=== PATIENT | female | born 1935 | race Caucasian/White ===

== ENCOUNTER 2016-09-22 11:43 | Emergency (ER) | payer OTHER, BC ==
[2016-09-22 11:53] VITALS: BMI 31.1
--- NOTE | 2016-09-22 12:05 | PDOC ---
History of Present Illness - General Chief Complaint: Syncope/Near Syncope Stated Complaint: FAINTED Time Seen by Provider: 09/22/16 12:04 Past History - Past Medical History Allergies/Adverse Reactions: Allergies Allergy/AdvReac Type Severity Reaction Status Date / Time levofloxacin [From Levaquin] Allergy Severe Difficulty Verified 09/22/16 11:50 Breathing Sulfa (Sulfonamide Allergy Intermediate Rash Verified 09/22/16 11:50 Antibiotics) [Sulfa(Sulfonamide Antibiotics)] environmental Allergy Mild Cough Uncoded 09/22/16 11:50 Home Medications: Ambulatory Orders Duloxetine [Cymbalta -] 30 mg PO DAILY 12/07/11 Esomeprazole Mag Trihydrate [Nexium] 40 mg PO ASDIR 12/07/11 Levothyroxine [Synthroid -] 0.125 mcg PO DAILY 12/07/11 Metoprolol Succinate [Toprol XL -] 25 mg PO DAILY 12/07/11 Rosuvastatin Calcium [Crestor] 20 mg PO DAILY 12/07/11 Fluticasone Propionate [Flovent Hfa] 110 mcg IH PRN 12/18/11 Vit D3 & K/Berberine HCl/Hops 1 tab PO DAILY 12/18/11 Aspirin [ASA -] 162 mg PO DAILY #60 tab.chew 09/25/13 Anemia: No Asthma: Yes (mild during allergy seasons) Cancer: Yes (newly dx rt breast) Cardiac Disorders: No CVA: No COPD: No CHF: No Dementia: No Diabetes: No GI Disorders: No Disorders: No HTN: Yes Hypercholesterolemia: Yes Liver Disease: No Seizures: No Thyroid Disease: Yes (HYPO.) Other medical history: HIATAL HERNIA. - Surgical History Abdominal Surgery: No Appendectomy: No Cardiac Surgery: No Cholecystectomy: No Lung Surgery: No Neurologic Surgery: No Orthopedic Surgery: Yes - Psycho/Social/Smoking Cessation Hx Anxiety: No Suicidal Ideation: No Smoking History: Never smoked Have you smoked in the past 12 months: No Hx Alcohol Use: No Drug/Substance Use Hx: No Substance Use Type: None Hx Substance Use Treatment: No *Physical Exam - Vital Signs Last Vital Signs Temp Pulse Resp BP Pulse Ox 98.4 F 84 18 83/58 98 09/22/16 11:46 09/22/16 11:46 09/22/16 11:46 09/22/16 11:46 09/22/16 11:46
[2016-09-22] MEDS ORDERED: SODIUM CHLORIDE 0.9% 1000 ML INFUS.BAG IV ONE ×2 (13:19→15:49)
[2016-09-22 13:35] LABS: MCH 29.1 pg (25.7-33.7); MCHC 34.3 g/dl (32.0-36.0); MEAN CELL VOLUME 84.7 fl (80-96); MEAN PLT VOLUME 7.4 fl (7.5-11.1); PLATELET COUNT 131 K/MM3 (134-434); WHITE BLOOD COUNT 4.6 K/mm3 (4.0-10.0)
[2016-09-22 14:17] LABS: PLATELET ESTIMATE SLT DECREASED (NORMAL)
[2016-09-22 14:19] LABS: ANION GAP 6 (8-16); CALCIUM 8.5 mg/dL (8.5-10.1); CO2 28 mmol/L (21-32); GLUCOSE,RANDOM 112 mg/dL (74-106)
[2016-09-22 14:22] LABS: CREATININE 1.3 mg/dL (0.55-1.02)
[2016-09-22 14:24] LABS: TROPONIN I < 0.02 ng/ml (0.00-0.05)
--- NOTE | 2016-09-22 14:35 | PDOC ---
History of Present Illness - General Chief Complaint: Syncope/Near Syncope Stated Complaint: FAINTED Time Seen by Provider: 09/22/16 12:04 History Source: Patient Exam Limitations: No Limitations - History of Present Illness Initial Comments: 81 year old female with PMH of HTN and HLD presenting with presyncopal sensation this AM. She was gardening earlier and got up rather quickly then felt lightheaded and nauseous but denies LOC or actual syncope. She does admit to vomiting after sitting down at the end of her stairs. She has had some chronic sinusitis over the past month. She has recently been depressed over the loss of her cat and admits to decreased PO intake. She had an episode of syncope 3 years ago which was attributed to dehydration. Denies chest pain, palpitations, paresthesias, fevers, localized weakness, dysarthria, recent sick contacts, or other symptoms. 09/22/16 16:10 Past History - Past Medical History Allergies/Adverse Reactions: Allergies Allergy/AdvReac Type Severity Reaction Status Date / Time levofloxacin [From Levaquin] Allergy Severe Difficulty Verified 09/22/16 11:50 Breathing Sulfa (Sulfonamide Allergy Intermediate Rash Verified 09/22/16 11:50 Antibiotics) [Sulfa(Sulfonamide Antibiotics)] environmental Allergy Mild Cough Uncoded 09/22/16 11:50 Home Medications: Ambulatory Orders Duloxetine [Cymbalta -] 30 mg PO DAILY 12/07/11 Metoprolol Succinate [Toprol XL -] 25 mg PO DAILY 12/07/11 Rosuvastatin Calcium [Crestor] 20 mg PO DAILY 12/07/11 Fluticasone Propionate [Flovent Hfa] 110 mcg IH PRN 12/18/11 Levothyroxine [Synthroid -] 25 mcg PO DAILY 09/22/16 Anemia: No Asthma: Yes (mild during allergy seasons) Cancer: Yes (newly dx rt breast) Cardiac Disorders: No CVA: No COPD: No CHF: No Dementia: No Diabetes: No GI Disorders: No Disorders: No HTN: Yes Hypercholesterolemia: Yes Liver Disease: No Seizures: No Thyroid Disease: Yes (HYPO.) Other medical history: HIATAL HERNIA. - Surgical History Abdominal Surgery: No Appendectomy: No Cardiac Surgery: No Cholecystectomy: No Lung Surgery: No Neurologic Surgery: No Orthopedic Surgery: Yes - Psycho/Social/Smoking Cessation Hx Anxiety: No Suicidal Ideation: No Smoking History: Never smoked Have you smoked in the past 12 months: No Hx Alcohol Use: No Drug/Substance Use Hx: No Substance Use Type: None Hx Substance Use Treatment: No Review of Systems - Review of Systems Constitutional: No: Chills, Diaphoresis, Fever HEENTM: Yes: Nose Congestion, Other (Frontal snus congestion). No: Blurred Vision, Double Vision Respiratory: No: Cough, Orthopnea, Shortness of Breath, SOB with Exertion Cardiac (ROS): Yes: Lightheadedness. No: Chest Pain, Edema, Irregular Heart Rate, Palpitations, Syncope, Chest Tightness ABD/GI: Yes: Nausea, Vomiting. No: Constipated, Diarrhea, Poor Appetite : Yes: Frequency, Urgency. No: Dysuria, Flank Pain Musculoskeletal: No: Joint Pain, Joint Swelling, Muscle Pain Integumentary: No: Bruising, Dryness, Erythema Neurological: Yes: Headache. No: Numbness, Paresthesia Psychiatric: Yes: Depression (Depressed about cat passing away.), Frequent Crying Endocrine: Yes: Excessive Sweating, Flushing, Increased Urine *Physical Exam - Vital Signs Last Vital Signs Temp Pulse Resp BP Pulse Ox 98.4 F 78 18 121/63 97 09/22/16 11:46 09/22/16 13:38 09/22/16 12:38 09/22/16 13:38 09/22/16 12:10 - Physical Exam General Appearance: Yes: Appropriately Dressed. No: Apparent Distress HEENT: positive: EOMI, KAISER, Normal Voice Neck: positive: Supple. negative: Tender, Rigid Respiratory/Chest: positive: Lungs Clear, Normal Breath Sounds. negative: Chest Tender, Respiratory Distress, Accessory Muscle Use, Rhonchi, Wheezing Cardiovascular: positive: Regular Rhythm, Regular Rate, Murmur, Systolic Murmur Gastrointestinal/Abdominal: positive: Normal Bowel Sounds, Flat, Soft. negative : Tender, Organomegaly Musculoskeletal: positive: Normal Inspection Extremity: positive: Normal Capillary Refill, Normal Inspection, Normal Range of Motion. negative: Tender Integumentary: positive: Normal Color, Dry, Warm Neurologic: positive: Fully Oriented, Alert, Normal Mood/Affect, Motor Strength 5/5, Other (Abmbulation without diffculty) ED Treatment Course - LABORATORY CBC & Chemistry Diagram: 09/22/16 13:25 09/22/16 13:25 - ADDITIONAL ORDERS Additional order review: Laboratory Results 09/22/16 09/22/16 09/22/16 13:25 13:25 13:25 Sodium 138 Potassium 4.3 Chloride 104 Carbon Dioxide 28 Anion Gap 6 L BUN 23 H D Creatinine 1.3 H Random Glucose 112 H Lactic Acid 1.3 Calcium 8.5 Creatine Kinase Cancelled 111 Troponin I Cancelled < 0.02 09/22/16 13:25 RBC 4.85 MCV 84.7 MCHC 34.3 RDW 14.0 MPV 7.4 L Neutrophils % 76.0 Lymphocytes % 16.0 D Monocytes % 7.0 - Medications Given in the ED: ED Medications Discontinued Medications Generic Name Dose Route Start Last Admin Trade Name Freq PRN Reason Stop Dose Admin Sodium Chloride 500 ml 09/22/16 13:19 09/22/16 13:37 Normal Saline - IV 09/22/16 13:20 500 ml ONCE ONE Administration Medical Decision Making - Medical Decision Making 09/22/16 15:59 81 year old female with PMH of HTN and HLD presenting with lightheadedness nausea, and vomiting today after gardening. This was most likely orthostatic hypotension given her recently decreased PO intake secondary to depression about her cat passing away. Her CBC, BMP, and lactate were WNL and her pressures came up to 100s after 500 mL NS. Given lab results and overall clinical picture she doesn't appear acutely ill. Will give one more 500 mL bolus and send home with follow up with Dr. Avila on Saturday. 09/22/16 16:15 09/22/16 17:16 *DC/Admit/Observation/Transfer Diagnosis at time of Disposition: Orthostatic hypotension - Discharge Dispostion Disposition: HOME Condition at time of disposition: Improved Admit: No - Referrals Referrals: Sara Posey MD [Primary Care Provider] - - Patient Instructions Additional Instructions: You were seen because you were feeling lightheaded. We believe that you haven't been drinking enough water and haven't been eating enough food. We understand that your cat but please eat food and drink water. Please make sure to drink more water when it is warm outside. - Attestations Physician Attestion: 09/22/16 17:17 I, Dr. Andi Saenz, attest that this document has been prepared under my direction and personally reviewed by me in its entirety. I further attest, that it accurately reflects all work, treatment, procedures and medical decision -making performed by me.
[2016-09-22 14:45] VITALS: BP 134/78; PULSE 73; TEMP 98.2
--- NOTE | 2016-09-22 16:52 | PDOC ---
Attending Attestation - Resident Resident Name: Andi Saenz - HPI HPI: 09/22/16 16:49 Pt presents to the ED complaining of presyncope. Initially mildly hypotensive, improved with gentle hydration. - Physicial Exam PE: 09/22/16 16:51 Patient is well appearing and in no acute distress. Lungs are clear, no cardiac murmurs. - Medical Decision Making 09/22/16 16:55 Pt presents to the ED with witnessed presyncope. Initially hypotensive, improved after gentle hydration. Labs and EKG are normal and patient is asking to go home. Case discussed with patient's primary care doctor who will see the patient on Saturday. Will discharge home.
--- NOTE | 2016-09-23 13:47 | EKG ---
Test Reason : Blood Pressure : / mmHG Vent. Rate : 084 BPM Atrial Rate : 084 BPM P-R Int : 128 ms QRS Dur : 074 ms QT Int : 354 ms P-R-T Axes : 037 004 018 degrees QTc Int : 418 ms NORMAL SINUS RHYTHM NORMAL ECG WHEN COMPARED WITH ECG OF 24-SEP-2013 11:44, NO SIGNIFICANT CHANGE WAS FOUND Confirmed by DWIGHT SORTO MD ([id number]) on 09/23/2016 1:47:12 PM Referred By: Confirmed By:DWIGHT SORTO MD
== END 2016-09-22 17:44 | disposition home or self-care (01) ==
LOC: JER 11:43 → SUPCPDRO 11:43 → JER 17:44
DX: I95.1 Orthostatic hypotension (principal); I10 Essential (primary) hypertension; E78.00 Pure hypercholesterolemia, unspecified; E03.9 Hypothyroidism, unspecified; C50.919 Malignant neoplasm of unspecified site of unspecified female breast
CPT/HCPCS: 36415; 71010-TC; 80048; 82550; 83605; 84484; 85025; 93005; 93010; 99284-25

== ENCOUNTER → 2018-05-09 | Day surgery (SDC) | payer OTHER, BC ==
--- NOTE | 2018-05-12 20:57 | OP ---
DATE OF OPERATION: 05/09/2018 PREOPERATIVE DIAGNOSIS: Right breast mass, 5 o'clock, 8 cm from the nipple. POSTOPERATIVE DIAGNOSIS: Right breast mass, 5 o'clock, 8 cm from the nipple. PROCEDURE: Right ultrasound-guided core biopsy and clip placement. ANESTHESIA: Local. ATTENDING SURGEON: Lobo Petty MD ESTIMATED BLOOD LOSS: Minimal. COMPLICATIONS: None. DESCRIPTION OF PROCEDURE: Patient was made aware of the risks and benefits of the procedure and consented. She was placed in supine position. Under sterile conditions with 1% lidocaine for local anesthesia, small sherwin was made in the skin. Using a 10-gauge suction biopsy device via an inferolateral approach under ultrasound guidance, multiple cores were obtained and submitted to Pathology. Likewise, under ultrasound guidance, bow-tie clip was placed into the biopsy region. Well tolerated by patient. Steri-Strip and a sterile bandage were applied. LOBO PETTY M.D. [id number]
--- NOTE | 2018-05-13 16:33 | PATH ---
Surgical Pathology Report Patient Name: JASMEET JONES [facility]. Rec. #: [id number] /Age/Gender: 1935 (Age: 83) / F Account: [id number] Location: [facility] MED-SURG Taken: 05/09/2018 Received: 05/09/2018 Reported: 05/13/2018 Physicians: Lukas Marino M.D. Specimen(s) Received RIGHT BREAST CORE BIOPSY 5:00 N8 Clinical History Nonpalpable lesion Ultrasound findings: Highly suspicious for malignant Final Diagnosis RIGHT BREAST, 5:00, 8 CM FN, CORE BIOPSY: INVASIVE DUCTAL CARCINOMA, MODERATELY DIFFERENTIATED, WITH MICROPAPILLARY FEATURES, MEASURING 0.6 CM IN GREATEST DIMENSION IN THIS MATERIAL. Results of Estrogen Receptor (ER) and Progesterone Receptor (MO) studies performed on block "1" at [facility] are as follows: ER (clone [id number] mouse monoclonal antibody by [employer]): 100% nuclear staining with strong intensity (Positive). MO (clone16 mouse monoclonal antibody by [employer]): 100% nuclear staining with strong intensity (Positive). Positive and negative controls (internal if applicable) show appropriate results. Formalin fixation time exceeds current ASCO/CAP recommendations for ER,MO & Her2 testing (6-72 hrs). Negative results must be interpreted with caution as false negatives may occur. Cold ischemic time is within recommended guidelines. Reports for Her 2 and Ki-67 to follow as an addendum. Electronically Signed Shea Rose M.D. Addendum Reported: 05/14/2018 Addendum Diagnosis Biomarker Studies Results of Her2 (IHC) & Ki-67 studies performed on this specimen at [place], [place] ([id number]) interpreted at [facility] are as follows: Her2 IHC (EP3 from [employer], formerly known as [id number], using [employer] Polymer Refine detection kit): Negative (0) Ki-67: ~10% (low proliferative index) Shea Rose M.D. Gross Description Received in formalin labeled "right breast biopsy 5:00, 8cmfn," are 4 bennett-yellow, cylindrical portions of fibroadipose tissue ranging from 0.7-2.2 cm in length and averaging 0.2 cm in diameter. The specimens are submitted in toto in one cassette. Time to formalin fixation: Less than one minute Total formalin fixation time: Approximately 76 hours. 05/12/201805/12/2018
== END | disposition home or self-care (01) ==
LOC: FRADUS-SUR 12:26
PROVIDERS: ATTEND Surgery Surgical Oncology
PROC: 0HBT3ZX Excision of Right Breast, Percutaneous Approach, Diagnostic (ICD-10-PCS; principal; 2018-05-09)
DX: C50.311 Malignant neoplasm of lower-inner quadrant of right female breast (principal); Z17.0 Estrogen receptor positive status [ER+]; N63.14 Unspecified lump in the right breast, lower inner quadrant
CPT/HCPCS: 19083; 77065-TC; 87899; 88305-TC; 88342-TC; A4648

== ENCOUNTER 2018-06-05 08:29 | Day surgery (SDC) | payer OTHER, BC ==
--- NOTE | 2018-05-29 10:14 | HP ---
Admitting History and Physical - Primary Care Physician PCP: Lukas Marino - Admission Chief Complaint: Right breast cancer History of Present Illness: 83 year old postmenapausal female S/P right breast wide excision 12/2011 for a 5mm invasive ductal carcinoma ER/AK+ HER2 -.She took arimidex for 4 yrs but no RT. She was lost to follow up and then underwent a screening mammogram 2018 and was noted to have a new spiculated density towards right medial aspect of breast and on US confirmed a 5x4x4 mm density 4:00 11 cm FN. Right us core biopsy 05/09/2018 showed invasive ductal carcinoma ER+/AK+/HER2-. Breast MRI History Source: Patient Limitations to Obtaining History: No Limitations - Past Medical History Cardiovascular: Yes: HTN, Hyperlipdemia, Other (Heart dz related to valvular dz) Gastrointestinal: Yes: GERD Rheumatology: Yes: Fibromyalgia, Rheumatoid Arthritis Endocrine: Yes: Hypothyroidism - Past Surgical History Past Surgical History: Yes: Cataract Removal, Hysterectomy (TAHBSO benign) Additional Past Surgical History: thyroidectomy 1993 right breast bxs 1999 right breast wide excision 12/2011 breast cancer no Rt arimidex 4 yrs - Smoking History Smoking history: Never smoked Have you smoked in the past 12 months: No - Alcohol/Substance Use Hx Alcohol Use: No Home Medications - Allergies Allergies/Adverse Reactions: Allergies Allergy/AdvReac Type Severity Reaction Status Date / Time levofloxacin [From Levaquin] Allergy Severe Difficulty Verified 09/22/16 11:50 Breathing Sulfa (Sulfonamide Allergy Intermediate Rash Verified 09/22/16 11:50 Antibiotics) [Sulfa(Sulfonamide Antibiotics)] environmental Allergy Mild Cough Uncoded 09/22/16 11:50 - Home Medications Home Medications: Ambulatory Orders Duloxetine [Cymbalta -] 30 mg PO DAILY 12/07/11 Metoprolol Succinate [Toprol XL -] 25 mg PO DAILY 12/07/11 Rosuvastatin Calcium [Crestor] 20 mg PO DAILY 12/07/11 Fluticasone Propionate [Flovent Hfa] 110 mcg IH PRN 12/18/11 Levothyroxine [Synthroid -] 25 mcg PO DAILY 09/22/16 Family Disease History - Family Disease History Family Disease History: CA: Father (CRC), Sister (bladder ca) Physical Examination Constitutional: Yes: No Distress Breast(s): Yes: Other (Well healed incision from prior excision right breast no palapble masses in eithr breast or adenopathy post bx changes right breast) Problem List - Problems (1) Breast cancer, right breast Code(s): C50.911 - MALIGNANT NEOPLASM OF UNSP SITE OF RIGHT FEMALE BREAST Qualifiers: Breast location: upper outer quadrant of breast Estrogen receptor status: positive Patient sex: female Qualified Code(s): C50.411 - Malignant neoplasm of upper-outer quadrant of right female breast; Z17.0 - Estrogen receptor positive status [ER+] Assessment/Plan Right breast wide excision ,lymphoscintogram,sentenel node biopsy,possible axillary node dissection
[2018-06-02 15:43] VITALS: BMI 28.9
[2018-06-05] MEDS ORDERED: SUCCINYLCHOLINE CHLORIDE 200 MG/10 ML VIAL ONE (13:30)
[2018-06-05] MEDS ORDERED: MIDAZOLAM HCL 2 MG/2 ML SINGLE DOSE VIAL ONE (13:30)
[2018-06-05] MEDS ORDERED: PROPOFOL 20 ML ONE (13:30)
[2018-06-05] MEDS ORDERED: ISOSULFAN BLUE 10 MG/ML VIAL SQ ONE (13:49)
[2018-06-05] MEDS ORDERED: BUPIVACAINE HCL/PF 0.5% (5MG/ML) 10 ML VIAL ONE (13:50)
[2018-06-05] MEDS ORDERED: LIDOCAINE HCL 1% PRESERVATIVE FREE - 30ML VIAL ONE (13:51)
[2018-06-05] MEDS ORDERED: DEXAMETHASONE SOD PHOSPHATE 4 MG/1 ML VIAL ONE (14:14)
[2018-06-05] MEDS ORDERED: ONDANSETRON 4 MG/2 ML VIAL ONE ×2 (14:14→15:47)
[2018-06-05] MEDS ORDERED: BUPIVACAINE HCL/PF 0.5% (5MG/ML) 10 ML VIAL IJ ONE (15:17)
[2018-06-05] MEDS ORDERED: GUM MASTIC/STORAX/MSAL/ALCOHOL 1 DRP DROPSBTL MC ONE (15:23)
[2018-06-05] MEDS ORDERED: KETOROLAC TROMETHAMINE 30 MG/1 ML VIAL IVPUSH PRN (15:33)
[2018-06-05] MEDS ORDERED: ONDANSETRON 4 MG/2 ML VIAL IVPUSH PRN (15:33)
[2018-06-05] MEDS ORDERED: oxyCODONE HCL 5 MG TABLET PO PRN ×2 (15:41)
[2018-06-05] MEDS ORDERED: PROMETHAZINE HCL 25 MG/1 ML VIAL IVPUSH PRN (15:41)
[2018-06-05] MEDS ORDERED: KETOROLAC TROMETHAMINE 15 MG/ML VIAL IVPUSH ONE (15:42)
[2018-06-05] MEDS ORDERED: DEXTROSE 5%-0.45% SALINE 1,000 ML IV SCH (15:45)
[2018-06-05] MEDS: ONDANSETRON 4 MG/2 ML VIAL IVPUSH PRN ×2 (15:48→15:52)
[2018-06-05 15:52] VITALS: TEMP 97.6
--- NOTE | 2018-06-05 16:16 | OP ---
DATE OF OPERATION: 06/05/2018 PREOPERATIVE DIAGNOSIS: Right breast lower inner quadrant breast cancer. POSTOPERATIVE DIAGNOSIS: Right breast lower inner quadrant breast cancer. PROCEDURE: Right breast partial mastectomy with mammographic needle localization and right axillary sentinel lymph node biopsy. ANESTHESIA: General and laryngeal mask airway anesthesia. PRIMARY SURGEON: Jah Marino MD LADIES UNDERWEAR OPERATOR: SAVI Marrero COMPLICATIONS: There are no complications. Briefly, the patient is an 83-year-old postmenopausal white female who has a history of a right breast cancer and initially underwent the right breast partial mastectomy in December 2011 for a 5-mm, moderately differentiated, ER/AL positive, HER2 negative, invasive duct breast cancer. She did not receive radiation therapy and just took Arimidex for 4 years. She was then lost to followup. She then represented and had an abnormal mammography on April 14, 2018, with a spiculated density in the right medial breast in the 4 o'clock region measuring about 5 x 4 x 4 mm. She underwent an ultrasound-guided core biopsy on May 09, 2018, showed a moderately differentiated, invasive duct cancer which was ER/AL positive, HER2/krista negative with a low Ki-67. She refused an MRI. She was offered intraoperative radiation but then chose just to have external beam radiation. She was brought in for a right breast partial mastectomy and sentinel lymph node biopsy with needle localization on June 05, 2018. She first underwent a needle localization and lymphoscintigraphy at [facility] and was brought to the [facility] holding area. In the holding area, site verification was made, and informed consent was obtained. She was brought into the operating room and laid on the OR table in the supine position. Venodynes were placed on the lower extremities prior to induction. She did not receive any antibiotics given the small nature of the excision. She underwent general and laryngeal mask airway anesthesia. Three mL of Lymphazurin blue were injected intradermally and peritumorally around the needle localization site on the lower inner aspect of the right breast and massage was instituted. When she was properly anesthetized, and the breast was sterilely prepped and draped in the usual fashion, the sentinel lymph node biopsy was first performed. Incision was made using the prior sentinel lymph node incision in the lower right axilla. Dissection was undertaken, and a blue lymphatic was easily seen coursing to a blue, hot lymph node. This had a 10-second gamma count of 1170. No other blue or hot nodes were found, and background count was 79. Hemostasis was achieved. The node was sent down to Pathology in formalin for permanent section. After hemostasis was achieved, and the axial wound was closed using interrupted 2-0 plain suture then interrupted 3-0 deep dermal Vicryl suture and a running 4-0 subcuticular Biosyn suture. At this point, the wide excision was excision was undertaken around the lower inner aspect of the right breast. An ellipse of skin was removed with a wide excision just in the lower medial aspect of the right breast around the inframammary fold. The breast tissue was completely excised from around the wire with the wire intact within the middle of the specimen. The specimen was oriented with a long lateral and short superior suture and specimen radiograph showed removal of the clip in question. Hemostasis was achieved, and the wound was copiously irrigated with warm sterile saline. This specimen was sent down in formalin to Pathology. At this point, a 4 x 3 cm tissue transfer closure was accomplished by undermining the breast tissue and filling the defect in with breast tissue which was advanced into the cavity. The breast tissue was reapproximated using 2-0 plain suture. The skin was closed using interrupted 3-0 deep dermal Vicryl suture and a running 4-0 subcuticular Biosyn suture. Mastisol and Steri-Strips were applied over the wound and compressive dressing placed over this. She was placed in a surgical bra postoperatively. Laryngeal mask airway tube was removed at the end of the case, and she will be recovered in the postanesthesia care unit. She will be discharged home the same day once discharge criteria are met. She is to follow up in the office in 1 week for formal wound and pathology check. All sponge and needle counts are correct at the end of the case. Estimated blood loss was minimal. JAH MARINO M.D. [id number]
[2018-06-05 16:51] VITALS: PULSE 76
[2018-06-05 17:52] VITALS: BP 128/78
--- NOTE | 2018-06-10 15:01 | PATH ---
Surgical Pathology Report Patient Name: JASMEET JONES [facility]. Rec. #: [id number] /Age/Gender: 1935 (Age: 83) / F Account: [id number] Location: [facility] AMBULATORY Taken: 06/05/2018 Received: 06/05/2018 Reported: 06/10/2018 Physicians: Lukas Marino M.D. 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 LYMPH NODE, RIGHT BREAST SENTINEL #1, EXCISION: ONE LYMPH NODE, NEGATIVE FOR METASTATIC CARCINOMA (0/1). B. BREAST, RIGHT, WIDE EXCISION: INVASIVE MICROPAPILLARY CARCINOMA, MODERATELY DIFFERENTIATED (TUBULE SCORE: 3/3, NUCLEAR GRADE: 2/3, MITOTIC SCORE: 1/3, TOTAL SCORE: 6/9; ANA GRADE 2). (SEE NOTE) INVASIVE CARCINOMA MEASURES 5 MM IN GREATEST DIMENSION, MICROSCOPICALLY. (SEE NOTE). INVASIVE CARCINOMA IS FOCALLY CLOSE TO (< 1 MM) THE INFERIOR MARGIN. SEE SPECIMENS C-H FOR FINAL MARGINS. NO LYMPHOVASCULAR INVASION IS IDENTIFIED. SKIN IS PRESENT AND IS UNINVOLVED BY CARCINOMA. PRIOR BIOPSY SITE CHANGES ARE PRESENT. PATHOLOGIC STAGE (pTNM): pT1b pN0. (SEE NOTE) SEE ALSO INVASIVE CARCINOMA CASE SUMMARY BELOW. Note: SUREKHA immunostain (performed at [facility], [place], [place]; [id number] on block B4) demonstrates complete linear reactivity at the outer surfaces of the micropapillary clusters, supporting complete reversal of cell polarity, consistent with micropapillary phenotype. The tumor measures 5 mm in greatest dimension in the current specimen and 6 mm in greatest dimension in prior core biopsy ([id number]), hence "pT" stage is "pT1b". C. BREAST, RIGHT, SUPERIOR MARGIN, EXCISION: BENIGN BREAST TISSUE. D. BREAST, RIGHT, INFERIOR MARGIN, EXCISION: BENIGN BREAST TISSUE. E. BREAST, RIGHT, LATERAL MARGIN, EXCISION: BENIGN BREAST TISSUE. F. BREAST, RIGHT, MEDIAL MARGIN, EXCISION: BENIGN BREAST TISSUE. G. BREAST, RIGHT, POSTERIOR MARGIN, EXCISION: BENIGN FIBROADIPOSE TISSUE. H. BREAST, RIGHT, ANTERIOR MARGIN, EXCISION: BENIGN FIBROADIPOSE TISSUE. Comments Breast Invasive Carcinoma: Surgical Pathology Case Summary (Based on AJCC TNM 8 th edition) Procedure _X_ Excision (less than total mastectomy) Specimen Laterality _X_ Right Tumor Size _X_ Greatest dimension of largest invasive focus >1 mm (millimeters): 6 mm (in prior core biopsy : D1) Histologic Type _X_ Invasive micropapillary carcinoma Histologic Grade ([place] Histologic Score) Glandular (Acinar)/Tubular Differentiation _X_ Score 3 (<10% of tumor area forming glandular/tubular structures) Nuclear Pleomorphism _X_ Score 2 Mitotic Rate _X_ Score 1 Overall Grade _X_ Grade 2 (scores of 6 or 7) Tumor Focality _X_ Single focus of invasive carcinoma Ductal Carcinoma In Situ (DCIS) _X_ No DCIS in specimen Margins Invasive Carcinoma Margins _X_ Uninvolved by invasive carcinoma Distance from closest margin (millimeters): < 1 mm from inferior margin in wide excision B. Final inferior margin D is negative for carcinoma. Regional Lymph Nodes _X_ Uninvolved by tumor cells Number of Lymph Nodes Examined: 1 Number of [place] Nodes Examined: 1 Treatment Effect _X_ No known presurgical therapy Lymphovascular Invasion _X_ Not identified Pathologic Stage Classification (pTNM, AJCC 8th Edition) Primary Tumor (Invasive Carcinoma) (pT) _X_ pT1b: Tumor >5 mm but =10 mm in greatest dimension Category (pN) _X_ pN0: No regional lymph node metastasis identified or ITCs only Biomarker Studies Results of ER and MN studies performed on prior biopsy (D1) at [facility] are as follows: ER (clone [id number] mouse monoclonal antibody by [employer]): 100% nuclear staining with strong intensity (positive). MN (clone16 mouse monoclonal antibody by [employer]): 100 % nuclear staining with strong intensity (positive). Results of Her2 (IHC) & Ki-67 studies performed on prior biopsy (D1 329) at [place], [place] ([id number]) are as follows: Her2 IHC (EP3 from [employer], formerly known as [id number], using Rebolled[employer] Polymer Refine detection kit): 0 (Negative). Ki67: ~10% (low proliferative index). Electronically Signed Chandrika Ebrahim, M.D. Gross Description A. Received in formalin labeled "right breast sentinel lymph node #1," is a 0.9 x 0.5 x 0.5 cm lymph node. The specimen is bisected and entirely submitted in one cassette. B. Received in formalin, labeled "right breast wide excision," is a 4.4 x 4.4 x 2.0 cm. bennett-yellow, irregular, portion of fibroadipose tissue with a needle localization wire present. There is a short suture marking the superior aspect and a long suture marking the lateral aspect, per the surgeon. The anterior surface displays a 2.0 x 1.0 cm bennett, elliptical, unremarkable portion of skin. The specimen is inked as follows: Superior blue; inferior green; lateral red; medial yellow; posterior black. The specimen is serially sectioned from anterior to posterior. Sectioning reveals a 0.8 x 0.6 x 0.6 cm bennett, ill-defined mass at 0.1 cm from the inferior margin. The mass is focally at 0.2 cm from the lateral margin and 0.4 cm from the medial margin. Relationship Counselor sections are submitted in 7 cassettes as follows: 1-full-face section of mass with inferior, lateral and medial margins; 1-1-embmmsklsc sections of mass (with inferior, lateral and medial margins); 4-additional inferior margin; 5-superior margin; 6-skin; 7-deep margin. Time to formalin fixation: Not given Total formalin fixation time: Approximately 26 hours C. Received in formalin labeled "right breast superior margin," is a 1.8 x 1.6 x 0.9 cm portion of fibroadipose tissue with a suture marking the biopsy cavity side, per the surgeon. The new margin is inked blue and the specimen is serially sectioned. The specimen is entirely submitted in 2 cassettes. D. Received in formalin labeled "right breast inferior margin," is a 1.5 x 1.3 x 0.5 cm portion of fibroadipose tissue with a suture marking the biopsy cavity side, per the surgeon. The new margin is inked blue and the specimen is serially sectioned. The specimen is entirely submitted in 2 cassettes. E. Received in formalin labeled "right breast lateral margin," is a 2.4 x 1.8 x 0.7 cm portion of fibroadipose tissue with a suture marking the biopsy cavity side, per the surgeon. The new margin is inked blue and the specimen is serially sectioned. The specimen is entirely submitted in 3 cassettes. F. Received in formalin labeled "right breast medial margin," is a 2.0 x 1.5 x 0.5 cm portion of fibroadipose tissue with a suture marking the biopsy cavity side, per the surgeon. The new margin is inked blue and the specimen is serially sectioned. The specimen is entirely submitted in 2 cassettes. G. Received in formalin labeled "right breast posterior margin," is a 2.3 x 2.0 x 0.7 cm portion of fibroadipose tissue with a suture marking the biopsy cavity side, per the surgeon. The new margin is inked blue and the specimen is serially sectioned. The specimen is entirely submitted in 3 cassettes. H. Received in formalin labeled "right breast anterior margin," is a 1.7 x 1.4 x 0.6 cm portion of fibroadipose tissue with a suture marking the biopsy cavity side, per the surgeon. The new margin is inked blue and the specimen is serially sectioned. The specimen is entirely submitted in 2 cassettes. 06/06/2018 [facility]06/06/2018
== END 2018-06-05 17:55 | disposition home or self-care (01) ==
LOC: FASU 08:29
PROVIDERS: ATTEND Surgery Surgical Oncology
PROC: 0HBT0ZZ Excision of Right Breast, Open Approach (ICD-10-PCS; principal; 2018-06-05 14:00)
DX: C50.411 Malignant neoplasm of upper-outer quadrant of right female breast (principal); Z17.0 Estrogen receptor positive status [ER+]; I10 Essential (primary) hypertension; E78.5 Hyperlipidemia, unspecified; K21.9 Gastro-esophageal reflux disease without esophagitis; M79.7 Fibromyalgia; M06.9 Rheumatoid arthritis, unspecified; E03.9 Hypothyroidism, unspecified; Z90.710 Acquired absence of both cervix and uterus
CPT/HCPCS: 19281; 78195-TC; 88307-TC; 94760; A9541

== ENCOUNTER 2018-09-24 10:16 | Emergency (ER) | payer OTHER, BC ==
[2018-09-24 10:36] VITALS: BMI 28.3
[2018-09-24] MEDS ORDERED: ACETAMINOPHEN 1000 MG/100 ML VIAL (NON FORMULARY) IVPB ONE (10:45)
[2018-09-24] MEDS ORDERED: SODIUM PHOSPHATE/NA BIPHOS 133 ML ENEMA PR ONE (10:45)
--- NOTE | 2018-09-24 11:09 | PDOC ---
*Physical Exam - Vital Signs Last Vital Signs Temp Pulse Resp BP Pulse Ox 98.6 F 77 20 143/65 98 09/24/18 10:32 09/24/18 10:32 09/24/18 10:32 09/24/18 10:32 09/24/18 10:32 ED Treatment Course - LABORATORY CBC & Chemistry Diagram: 09/24/18 11:00 09/24/18 11:00 Medical Decision Making - Medical Decision Making 09/24/18 11:08 This is an 83-year-old female presented to emergency department with a complaint of lower abdominal pain. She was seen by her primary care physician who did an ultrasound. Patient reports left lower abdominal pain/tenderness. No fevers or chills. Rectal exam per LAWRENCE Delcid Pt seen by Midlevel Provider under my direct supervision Pt interviewed and examined Ancillary studies reviewed I agree with plan as outlined by Midlevel Provider 09/24/18 11:46 EKG - NSR rate of 78 bpm, axis nml, intervals nml CT with fecal impaction Will discharge to home with bowel regimen *DC/Admit/Observation/Transfer Diagnosis at time of Disposition: Fecal impaction - Discharge Dispostion Disposition: HOME Condition at time of disposition: Stable - Prescriptions Prescriptions: Hydrocortisone/Lidocaine/Aloe [Leena-Fredrick 2-2% Kit] 1 each RC Q8H #1 kit - Referrals Referrals: Sara Posey MD [Primary Care Provider] - - Patient Instructions Printed Discharge Instructions: DI for Fecal Impaction Additional Instructions: You CT scan showed that you have fecal impaction. This is excess stool You have had bowel movements since being in the ER You may take the fleet enema at home to help you use the restroom. Follow the instructions on the bottle Drink plenty of water and eat a high fiber diet Follow up with your primary care doctor this week. Return to the ER for worsening abdominal pain, fever, pain with urinary or painful/bloody stools or if you have any changes in your symptoms - Post Discharge Activity
[2018-09-24] MEDS ORDERED: ACETAMINOPHEN INJECTION 100 ML IVPB ONE (11:11)
[2018-09-24 11:16] LABS: BASO % 0.5 % (0-2.0); EOS % 0.9 % (0-4.5); HEMATOCRIT 38.5 % (32.4-45.2); HEMOGLOBIN 13.2 GM/dL (10.7-15.3); LYMPH % 10.4 % (8-40); MCH 29.1 pg (25.7-33.7); MCHC 34.3 g/dl (32.0-36.0); MEAN PLT VOLUME 7.7 fl (7.5-11.1); NEUT % 82.2 % (42.8-82.8); PLATELET COUNT 200 K/MM3 (134-434); RBC 4.53 M/mm3 (3.60-5.2); RDW 13.6 % (11.6-15.6); WHITE BLOOD COUNT 7.8 K/mm3 (4.0-10.0)
[2018-09-24 11:32] LABS: INR 1.08 (0.83-1.09); PROTHROMBIN TIME (PATIENT) 12.7 SEC (9.7-13.0)
[2018-09-24 11:41] LABS: EPI CELLS 0.4 /HPF (0-5/HPF); HYALINE CASTS 0 /lpf (0-8); PH,URINE 5.5 (5.0-8.0); URINE APPEARANCE CLEAR; URINE BACTERIA 240.7 /hpf (NEGATIVE); URINE BILIRUBIN NEGATIVE (NEGATIVE); URINE COLOR YELLOW; URINE GLUCOSE (UA) NEGATIVE (NEGATIVE); URINE KETONE TRACE (NEGATIVE); URINE LEUK ESTERASE TRACE (NEGATIVE); URINE NITRITE NEGATIVE (NEGATIVE); URINE PROTEIN NEGATIVE (NEGATIVE); URINE RBC 28 /hpf (0-4); URINE UROBILINOGEN 0.2 mg/dL (0.2-1.0); URINE WBC 1 /hpf (0-5)
[2018-09-24 11:56] LABS: BILIRUBIN,TOTAL 0.6 mg/dL (0.2-1); BLOOD UREA NITROGEN 16.7 mg/dL (7-18); CALCIUM 9.5 mg/dL (8.5-10.1); CREATININE 1.1 mg/dL (0.55-1.3); POTASSIUM 3.9 mmol/L (3.5-5.1); TOT PROT 7.3 g/dl (6.4-8.2)
--- NOTE | 2018-09-24 12:32 | PDOC ---
History of Present Illness - General Chief Complaint: Pain Stated Complaint: PAIN Time Seen by Provider: 09/24/18 10:24 History Source: Patient Exam Limitations: No Limitations Past History - Travel Traveled outside of the country in the last 30 days: No Close contact w/someone who was outside of country & ill: No - Past Medical History Allergies/Adverse Reactions: Allergies Allergy/AdvReac Type Severity Reaction Status Date / Time levofloxacin [From Levaquin] Allergy Severe Difficulty Verified 09/24/18 10:32 Breathing Sulfa (Sulfonamide Allergy Intermediate Rash Verified 09/24/18 10:32 Antibiotics) [Sulfa(Sulfonamide Antibiotics)] environmental Allergy Mild Cough Uncoded 09/24/18 10:32 Home Medications: Ambulatory Orders Duloxetine [Cymbalta -] 30 mg PO DAILY 12/07/11 Rosuvastatin Calcium [Crestor] 20 mg PO DAILY 12/07/11 Fluticasone Propionate [Flovent Hfa] 110 mcg IH BID 12/18/11 Levothyroxine [Synthroid -] 25 mcg PO DAILY 09/22/16 Acetaminophen [Tylenol] 650 mg PO TID PRN #20 tablet 06/05/18 Hydrocortisone/Lidocaine/Aloe [Leena-Fredrick 2-2% Kit] 1 each RC Q8H #1 kit 09/24/18 Anemia: No Asthma: Yes (mild during allergy seasons) Cancer: Yes (newly dx rt breast) Cardiac Disorders: No CVA: No COPD: No CHF: No Dementia: No Diabetes: No GI Disorders: No Disorders: No HTN: Yes Hypercholesterolemia: Yes Liver Disease: No Seizures: No Thyroid Disease: Yes (HYPO.) - Surgical History Abdominal Surgery: No Appendectomy: No Cardiac Surgery: No Cholecystectomy: No Lung Surgery: No Neurologic Surgery: No Orthopedic Surgery: Yes - Suicide/Smoking/Psychosocial Hx Smoking History: Never smoked Have you smoked in the past 12 months: No Hx Alcohol Use: No Drug/Substance Use Hx: No Substance Use Type: None Hx Substance Use Treatment: No Review of Systems - Review of Systems Able to Perform ROS?: Yes Comments:: 09/24/18 12:35 CONSTITUTIONAL: Absent: fever, chills, diaphoresis, generalized weakness, malaise, loss of appetite HEENT: Absent: rhinorrhea, nasal congestion, throat pain, throat swelling, difficulty swallowing, mouth swelling, ear pain, eye pain, visual Changes CARDIOVASCULAR: Absent: chest pain, loss of consciousness, palpitations, irregular heart rate, peripheral edema RESPIRATORY: Absent: cough, shortness of breath, dyspnea with exertion, orthopnea, wheezing, stridor, hemoptysis GASTROINTESTINAL: Present: abdominal pain Absent: abdominal distension, nausea, vomiting, diarrhea , constipation, melena, hematochezia GENITOURINARY: Absent: dysuria, frequency, urgency, hesitancy, hematuria, flank pain, genital pain MUSCULOSKELETAL: Absent: myalgia, arthralgia, joint swelling SKIN: Absent: rash, itching, pallor HEMATOLOGIC/IMMUNOLOGIC: Absent: easy bleeding, easy bruising, lymphadenopathy, frequent infections ENDOCRINE: Absent: unexplained weight gain, unexplained weight loss, heat intolerance, cold intolerance NEUROLOGIC: Absent: headache, focal weakness or paresthesias, dizziness, unsteady gait, seizure, mental status changes, bladder or bowel incontinence PSYCHIATRIC: Absent: anxiety, depression, suicidal or homicidal ideation, hallucinations. Is the patient limited [place] proficient: No *Physical Exam - Vital Signs Last Vital Signs Temp Pulse Resp BP Pulse Ox 98.6 F 77 20 143/65 98 09/24/18 10:32 09/24/18 10:32 09/24/18 10:32 09/24/18 10:32 09/24/18 10:32 - Physical Exam Comments: 09/24/18 14:33 GENERAL: Well developed, well nourished. Awake and alert. No acute distress. HEENT: Normocephalic, atraumatic. PERRLA, EOMI. No conjunctival pallor. Sclera are non- icteric. Moist mucous membranes. Oropharynx is clear. NECK: Supple. Full ROM. No JVD. Carotid pulses 2+ and symmetric, without bruits. No thyromegaly. No lymphadenopathy. CARDIOVASCULAR: Regular rate and rhythm. No murmurs, rubs, or gallops. Distal pulses are 2+ and symmetric. PULMONARY: No evidence of respiratory distress. Lungs clear to auscultation bilaterally. No wheezing, rales or rhonchi. ABDOMINAL: TTP of the LLQ, suprapubic region. Soft. Mildly distended. No rebound or guarding. No organomegaly. Normoactive bowel sounds. RECTAL: Multiple external non-thrombosed hemorrhoids noted. Stool noted in the vault. No gross blood noted. MUSCULOSKELETAL Normal range of motion at all joints. No bony deformities or tenderness. No CVA tenderness. EXTREMITIES: No cyanosis. No clubbing. No edema. No calf tenderness. SKIN: Warm and dry. Normal capillary refill. No rashes. No jaundice. NEUROLOGICAL: Alert, awake, appropriate. Cranial nerves 2-12 intact. No deficits to light touch and temperature in face, upper extremities and lower extremities. No motor deficits in the in face, upper extremities and lower extremities. Normoreflexic in the upper and lower extremities. Normal speech. Toes are down- going bilaterally. Gait is normal without ataxia. PSYCHIATRIC: Cooperative. Good eye contact. Appropriate mood and affect. ED Treatment Course - LABORATORY CBC & Chemistry Diagram: 09/24/18 11:00 09/24/18 11:00 - ADDITIONAL ORDERS Additional order review: Laboratory Results 09/24/18 09/24/18 09/24/18 11:18 11:00 11:00 PT with INR 12.70 INR 1.08 Sodium Potassium Chloride Carbon Dioxide Anion Gap BUN Creatinine Est GFR (CKD-EPI)AfAm Est GFR (CKD-EPI)NonAf Random Glucose Calcium Total Bilirubin AST ALT Alkaline Phosphatase Total Protein Albumin Lipase 110 Urine Color Yellow Urine Appearance Clear Urine pH 5.5 Ur Specific [place] 1.012 Urine Protein Negative Urine Glucose (UA) Negative Urine Ketones Trace H Urine Blood Trace Urine Nitrite Negative Urine Bilirubin Negative Urine Urobilinogen 0.2 Ur Leukocyte Esterase Trace Urine WBC (Auto) 1 Urine RBC (Auto) 28 Urine Casts (Auto) 0 U Epithel Cells (Auto) 0.4 Urine Bacteria (Auto) 240.7 Stool Occult Blood 09/24/18 09/24/18 11:00 10:30 PT with INR INR Sodium 140 Potassium 3.9 Chloride 107 Carbon Dioxide 29 Anion Gap 5 L BUN 16.7 Creatinine 1.1 Est GFR (CKD-EPI)AfAm 53.77 Est GFR (CKD-EPI)NonAf 46.39 Random Glucose 96 Calcium 9.5 Total Bilirubin 0.6 AST 34 ALT 32 Alkaline Phosphatase 52 Total Protein 7.3 Albumin 4.0 Lipase Urine Color Urine Appearance Urine pH Ur Specific [place] Urine Protein Urine Glucose (UA) Urine Ketones Urine Blood Urine Nitrite Urine Bilirubin Urine Urobilinogen Ur Leukocyte Esterase Urine WBC (Auto) Urine RBC (Auto) Urine Casts (Auto) U Epithel Cells (Auto) Urine Bacteria (Auto) Stool Occult Blood Negative 09/24/18 11:00 RBC 4.53 MCV 85.0 MCHC 34.3 RDW 13.6 MPV 7.7 Neutrophils % 82.2 Lymphocytes % 10.4 D Monocytes % 6.0 Eosinophils % 0.9 Basophils % 0.5 - RADIOLOGY Radiology Studies Ordered: Category Date Time Status ABDOMEN & PELVIS CT WITH CONTR [CT] Stat CT Scan 09/24/18 10:44 Ordered - Medications Given in the ED: ED Medications Discontinued Medications Generic Name Dose Route Start Last Admin Trade Name Lucho PRN Reason Stop Dose Admin Acetaminophen 1,000 mg 09/24/18 10:45 09/24/18 11:26 Ofirmev Injection - IVPB 09/24/18 10:46 1,000 mg ONCE ONE Administration Medical Decision Making - Medical Decision Making 09/24/18 16:36 the patient is an 83-year-old female with past medical ship hypothyroidism who presents to the ER today with lower abdominal pain for the past week. She states that she has been seen by her primary care doctor for this issue and had an ultrasound done which did not show acute pathology. She states that she has been unable to use the bathroom to poop for the last 3 days. She has tried taking multiple itac-irn-lmuqhlg medications at home to make her use the restroom however they have not been successful. Denies fevers, chills, shortness of breath, chest pain, nausea, vomiting, diarrhea, urinary symptoms. A/P: Lower abdominal pain On exam patient tenderness to palpation of the left lower quadrant. Also suprapubic pain noticed. Basic labs, CTAP with IV and oral contrast ordered Rectal exam performed in the ER. Stool for occult blood sent. Negative at this time. basic labs are within normal limits. Patient reports that after the rectal exam she has had multiple bowel movements in the ER and she feels a lot better. CTAP shows no acute pathology, no diverticulitis. Notable for fecal impaction Fleet enema ordered for the patient however she states that she does not want to use it in the ER and would prefer to go home to continue to use the restroom. Will discharge home with PCP follow-up. I discussed the physical exam findings, ancillary test results and final diagnoses with the patient. I answered all of the patient's questions. The patient was satisfied with the care received and felt comfortable with the discharge plan and treatment plan. The Patient agrees to follow up with the primary care physician/specialist within 24-72 hours. Return precautions were given. *DC/Admit/Observation/Transfer Diagnosis at time of Disposition: Fecal impaction - Discharge Dispostion Disposition: HOME Condition at time of disposition: Stable Decision to Admit order: No - Prescriptions Prescriptions: Hydrocortisone/Lidocaine/Aloe [Leena-Fredrick 2-2% Kit] 1 each RC Q8H #1 kit - Referrals Referrals: Sara Posey MD [Primary Care Provider] - - Patient Instructions Printed Discharge Instructions: DI for Fecal Impaction Additional Instructions: You CT scan showed that you have fecal impaction. This is excess stool You have had bowel movements since being in the ER You may take the fleet enema at home to help you use the restroom. Follow the instructions on the bottle Drink plenty of water and eat a high fiber diet Follow up with your primary care doctor this week. Return to the ER for worsening abdominal pain, fever, pain with urinary or painful/bloody stools or if you have any changes in your symptoms - Post Discharge Activity
--- NOTE | 2018-09-24 14:09 | EKG ---
Test Reason : Blood Pressure : / mmHG Vent. Rate : 078 BPM Atrial Rate : 078 BPM P-R Int : 128 ms QRS Dur : 078 ms QT Int : 386 ms P-R-T Axes : 057 005 022 degrees QTc Int : 440 ms NORMAL SINUS RHYTHM NORMAL ECG WHEN COMPARED WITH ECG OF 22-SEP-2016 11:52, NO SIGNIFICANT CHANGE WAS FOUND Confirmed by DWIGHT SORTO MD ([id number]) on 09/24/2018 2:08:42 PM Referred By: Confirmed By:DWIGHT SORTO MD
[2018-09-24 15:01] VITALS: BP 136/75; PULSE 88; TEMP 98.3
== END 2018-09-24 16:07 | disposition home or self-care (01) ==
LOC: JER 10:16
PROC: 3E033NZ Introduction of Analgesics, Hypnotics, Sedatives into Peripheral Vein, Percutaneous Approach (ICD-10-PCS; principal; 2018-09-24)
DX: K56.41 Fecal impaction (principal); J45.909 Unspecified asthma, uncomplicated; Z85.3 Personal history of malignant neoplasm of breast; I10 Essential (primary) hypertension; E78.00 Pure hypercholesterolemia, unspecified; E03.9 Hypothyroidism, unspecified
CPT/HCPCS: 36415; 74177-TC; 80053; 81003; 82272; 83690; 85025; 85610; 87086; 87186; 93005; 93010; 96374; 99284-25; J0131

== ENCOUNTER 2019-04-16 12:43 | Emergency (ER) | payer OTHER, BC ==
[2019-04-16 12:52] VITALS: BP 139/80; PULSE 75; TEMP 98.4
--- NOTE | 2019-04-16 12:53 | PDOC ---
Rapid Medical Evaluation Chief Complaint: Palpitations Time Seen by Provider: 04/16/19 12:47 Medical Evaluation: Allergies Allergy/AdvReac Type Severity Reaction Status Date / Time levofloxacin [From Levaquin] Allergy Severe Difficulty Verified 09/24/18 10:32 Breathing Sulfa (Sulfonamide Allergy Intermediate Rash Verified 09/24/18 10:32 Antibiotics) [Sulfa(Sulfonamide Antibiotics)] environmental Allergy Mild Cough Uncoded 09/24/18 10:32 04/16/19 12:47 I have performed a brief in-person evaluation of this patient. The patient presents with a chief complaint of: SOB/ palpitations this afternoon. some Pertinent physical exam findings: lungs clear, Air hunger I have ordered the following: Cxr, EKG The patient will proceed to the ED for further evaluation. Discharge Disposition - Diagnosis Heart palpitations, SOB (shortness of breath) - Discharge Dispostion Condition at time of disposition: Stable - Referrals - Patient Instructions - Post Discharge Activity
[2019-04-16 13:33] LABS: BASO % 0.7 % (0-2.0); EOS % 1.9 % (0-4.5); HEMATOCRIT 41.4 % (32.4-45.2); LYMPH % 23.7 % (8-40); MCH 29.6 pg (25.7-33.7); MCHC 33.8 g/dl (32.0-36.0); MEAN CELL VOLUME 87.6 fl (80-96); MEAN PLT VOLUME 7.4 fl (7.5-11.1); MONO % 6.4 % (3.8-10.2); NEUT % 67.3 % (42.8-82.8); PLATELET COUNT 231 K/MM3 (134-434); RBC 4.72 M/mm3 (3.60-5.2); RDW 14.6 % (11.6-15.6)
--- NOTE | 2019-04-16 13:39 | PDOC ---
History of Present Illness - General Chief Complaint: Palpitations Stated Complaint: SOB Time Seen by Provider: 04/16/19 12:47 History Source: Patient, Spouse - History of Present Illness Initial Comments: 04/16/19 13:40 Pt is an 84y/o female with HLD, hypothyroidism, and right breast cancer s/p partial mastectomy who presents an hour after sudden onset lightheadedness and hyperventilation. Pt was standing at the kitchen table with her when it occurred. There was no LOC. She sat down but continued to feel lightheaded. The episode lasted a few minutes. It resolved before coming to the ED by private vehicle. She has not experienced an event like this before. She denies chest pain, palpitations, paresthesias, headache, nausea, vomiting, or hx of anxiety/panic disorder. She has some lower abdominal pain that is chronic and being cared for by her PCP Dr. Posey. Past History - Past Medical History Allergies/Adverse Reactions: Allergies Allergy/AdvReac Type Severity Reaction Status Date / Time levofloxacin [From Levaquin] Allergy Severe Difficulty Verified 09/24/18 10:32 Breathing Sulfa (Sulfonamide Allergy Intermediate Rash Verified 09/24/18 10:32 Antibiotics) [Sulfa(Sulfonamide Antibiotics)] environmental Allergy Mild Cough Uncoded 09/24/18 10:32 Home Medications: Ambulatory Orders Rosuvastatin Calcium [Crestor] 20 mg PO DAILY 12/07/11 Levothyroxine [Synthroid -] 25 mcg PO DAILY 09/22/16 Fluticasone Propionate [Flovent Hfa] 04/16/19 Anemia: No Asthma: Yes (mild during allergy seasons) Cancer: Yes (right breast) Cardiac Disorders: No CVA: No COPD: No CHF: No Dementia: No Diabetes: No GI Disorders: No Disorders: No HTN: No Hypercholesterolemia: Yes Liver Disease: No Seizures: No Thyroid Disease: Yes (HYPO.) - Surgical History Abdominal Surgery: No Appendectomy: No Cardiac Surgery: No Cholecystectomy: No Lung Surgery: No Neurologic Surgery: No Orthopedic Surgery: Yes - Immunization History Immunization Up to Date: No - Psycho Social/Smoking Cessation Hx Smoking History: Never smoked Have you smoked in the past 12 months: No Information on smoking cessation initiated: No Hx Alcohol Use: No Drug/Substance Use Hx: No Substance Use Type: None Hx Substance Use Treatment: No Review of Systems - Review of Systems Constitutional: No: Diaphoresis HEENTM: No: Blurred Vision Respiratory: Yes: Other (hyperventilation) Cardiac (ROS): No: Chest Pain, Palpitations ABD/GI: No: Nausea, Vomiting Neurological: No: Headache, Paresthesia Psychiatric: No: Anxiety *Physical Exam - Vital Signs Last Vital Signs Temp Pulse Resp BP Pulse Ox 98.4 F 75 16 139/80 96 04/16/19 12:43 04/16/19 12:43 04/16/19 12:43 04/16/19 12:43 04/16/19 12:43 - Physical Exam General Appearance: Yes: Nourished, Appropriately Dressed. No: Apparent Distress HEENT: positive: EOMI, [place] Neck: positive: Trachea midline Respiratory/Chest: positive: Lungs Clear Cardiovascular: positive: Regular Rhythm, Regular Rate. negative: Murmur Gastrointestinal/Abdominal: positive: Normal Bowel Sounds. negative: Tender Integumentary: positive: Dry, Warm Neurologic: positive: Fully Oriented, Alert, Normal Mood/Affect ED Treatment Course - LABORATORY CBC & Chemistry Diagram: 04/16/19 13:20 04/16/19 13:20 Medical Decision Making - Medical Decision Making 04/16/19 13:54 Pt is an 84y/o female with HLD, hypothyroidism, and right breast cancer s/p partial mastectomy who presents an hour after sudden onset lightheadedness and hyperventilation. Pt was standing at the kitchen table with her when it occurred. EKG NSR HR 67, no ST changes, QTc 412 CXR, CBC, CMP, cardiac profile ordered ddx: pre-syncope, orthostatic hypotension, panic attack, r/o ACS 04/16/19 15:39 CXR no infiltrates, atelectastis CBC unremarkable BUN slightly elevated, likely 2/2 dehydration troponin negative BNP slightly elevated Instructed pt needs to reschedule appt for echo she missed this week with Dr. Posey. Pt and spouse are in understanding. Discharge - Discharge Information Problems reviewed: Yes Clinical Impression/Diagnosis: Heart palpitations, SOB (shortness of breath) Condition: Stable - Follow up/Referral Referrals: Sara Posey MD [Primary Care Provider] - - Patient Discharge Instructions Additional Instructions: You were seen in the emergency room after an episode of lightheadedness. Your labs and chest x-ray did not show anything problematic. You may be a little dehydrated. You are able to be discharged home. Call Dr. Posey's office this afternoon to schedule an appointment as soon as possible. You also need a heart ultrasound (echo). Drink water to stay hydrated. Return to the emergency room if you have more lightheadedness, have chest pain, difficulty breathing, or lose consciousness. - Post Discharge Activity
--- NOTE | 2019-04-16 14:24 | EKG ---
Test Reason : Blood Pressure : / mmHG Vent. Rate : 067 BPM Atrial Rate : 067 BPM P-R Int : 120 ms QRS Dur : 080 ms QT Int : 390 ms P-R-T Axes : 064 048 052 degrees QTc Int : 412 ms NORMAL SINUS RHYTHM NORMAL ECG WHEN COMPARED WITH ECG OF 24-SEP-2018 11:29, NO SIGNIFICANT CHANGE WAS FOUND Confirmed by HEMANT SANZ MD ([id number]) on 04/16/2019 2:24:31 PM Referred By: Confirmed By:HEMANT SANZ MD
[2019-04-16 15:12] LABS: EPI CELLS 0.5 /HPF (0-5/HPF); HYALINE CASTS 2 /lpf (0-8); URINE APPEARANCE CLEAR; URINE BACTERIA 0 /hpf (NEGATIVE); URINE BILIRUBIN NEGATIVE (NEGATIVE); URINE COLOR YELLOW; URINE GLUCOSE (UA) NEGATIVE (NEGATIVE); URINE KETONE NEGATIVE (NEGATIVE); URINE LEUK ESTERASE NEGATIVE (NEGATIVE); URINE NITRITE NEGATIVE (NEGATIVE); URINE PROTEIN NEGATIVE (NEGATIVE); URINE RBC 3 /hpf (0-4); URINE UROBILINOGEN 0.2 mg/dL (0.2-1.0); URINE WBC 1 /hpf (0-5)
[2019-04-16 15:13] LABS: ALBUMIN 4.2 g/dl (3.4-5.0); ALK PHOS 51 U/L (45-117); ANION GAP 5 MMOL/L (8-16); BILIRUBIN,TOTAL 0.6 mg/dL (0.2-1); BLOOD UREA NITROGEN 28.5 mg/dL (7-18); CALCIUM 9.4 mg/dL (8.5-10.1); CHLORIDE 104 mmol/L (98-107); CO2 29 mmol/L (21-32); CREATININE 1.2 mg/dL (0.55-1.3); GLUCOSE,RANDOM 86 mg/dL (74-106); N-TERMINAL BNP 724.1 pg/ml (5-450); POTASSIUM 3.7 mmol/L (3.5-5.1); SGOT/AST 35 U/L (15-37); SGPT/ALT 42 U/L (13-61); SODIUM 138 mmol/L (136-145); TOT PROT 7.9 g/dl (6.4-8.2)
--- NOTE | 2019-04-16 15:18 | PDOC ---
Attending Attestation - Resident Resident Name: Adriana Benitez - ED Attending Attestation I have performed the following: I have examined & evaluated the patient, The case was reviewed & discussed with the resident, I agree w/resident's findings & plan - HPI HPI: 04/16/19 15:10 Very high functioning 84-year-old female with history of right breast CA status post lumpectomy, followed by Dr. Posey as PCP, presents brought in by after episode of lightheadedness. Patient was in her usual state of good health, upon standing from a chair experienced some lightheadedness which prompted her to sit back down, symptoms resolved after a few minutes. She had no headache/vision change/speech change/chest pain/palpitations/focal deficit, encouraged her to come to the hospital to get checked out. At baseline, patient has no exercise limitations, she climbs 3.5 flights of stairs daily in her home without difficulty, has no history of recurring syncope. Her last echo was about 1 year ago and was actually scheduled again fo r this week, but she missed the appointment. She has absolutely no complaints of recent dehydration or infectious symptoms, has chronic lower abdominal discomfort that is being worked up by gastroenterology as an outpatient, she wants to go home. - Physicial Exam PE: 04/16/19 15:12 Vitals are stable, afebrile Well-appearing standing by her stretcher ambulating steadily Alert and in no acute distress, speaking full sentences No jaundice or pallor, no JVD Heart is regular with 1 out of 6 to 2 out of 6 systolic ejection murmur, lungs are clear Abdomen benign Neurologically intact - Medical Decision Making 04/16/19 15:13 High functioning 84-year-old female presents with episode of lightheadedness upon standing, consistent with orthostatic etiology. No evidence to suggest ACS/arrhythmia, no evidence for neuro issue, no signs/sxs c/w infectious process. labs, ua ekg requesting d/c corona, will d/w Dr. Posey and plan for outpt echo Heart Score/ECG Review #1 ECG reviewed & interpreted by me at: 12:58 General ECG Interpretation: Sinus Rhythm, Normal Rate (67), Normal Intervals (qtc 412, no LVH), No acute ischemic changes
== END 2019-04-16 16:02 | disposition home or self-care (01) ==
LOC: JER 12:43
DX: R00.2 Palpitations (principal); R06.02 Shortness of breath; Z88.8 Allergy status to other drugs, medicaments and biological substances; Z88.2 Allergy status to sulfonamides; E03.9 Hypothyroidism, unspecified; E78.5 Hyperlipidemia, unspecified; Z85.3 Personal history of malignant neoplasm of breast
CPT/HCPCS: 36415; 71046-TC-FY; 80053; 81003; 82550; 82553; 83880; 84484; 85025; 93005; 93010; 99283-25

== ENCOUNTER 2019-05-11 16:25 | Emergency (ER) | payer OTHER, BC ==
[2019-05-11 16:52] VITALS: TEMP 97.9; BMI 22.1
--- NOTE | 2019-05-11 17:34 | PDOC ---
History of Present Illness - History of Present Illness Initial Comments: 05/11/19 17:37 84 yo F PMH right breast CA status post lumpectomy, hypothyroidism, HLD, recent visit for lightheadedness 1 month ago, started on escitalopram per PCP, presenting with lightheadedness. Was supposed to get outpatient echo and labs but states that she missed her appointment. States that earlier today, she put Nasicort in her nostrils for congestive symptoms. Afterwords, she had two episodes of lightheadedness "like I was going to pass out", which lasted minutes and self-resolved. Unassociated with positional changes. Currently having mild lightheadedness, improved from prior. Denies CP, SOB, fevers/chills, urinary changes, N/V, RODRIGUEZ, vision changes, myalgias, weakness, numbness, or tingling. Endorses chronic constipation, nasal congestion, and mild lightheadedness. <Elana Mcdonough - Last Filed: 05/11/19 21:23> <Jackie Schilling - Last Filed: 05/11/19 21:36> - General Chief Complaint: Shortness of Breath Stated Complaint: SOB Past History - Past Medical History Anemia: No Asthma: Yes (mild during allergy seasons) Cancer: Yes (right breast) Cardiac Disorders: No CVA: No COPD: No CHF: No Dementia: No Diabetes: No GI Disorders: No Disorders: No HTN: No Hypercholesterolemia: Yes Liver Disease: No Seizures: No Thyroid Disease: Yes (HYPO.) - Surgical History Abdominal Surgery: No Appendectomy: No Cardiac Surgery: No Cholecystectomy: No Lung Surgery: No Neurologic Surgery: No Orthopedic Surgery: Yes - Immunization History Immunization Up to Date: No - Psycho Social/Smoking Cessation Hx Smoking History: Never smoked Have you smoked in the past 12 months: No Information on smoking cessation initiated: No Hx Alcohol Use: No Drug/Substance Use Hx: No Substance Use Type: None Hx Substance Use Treatment: No <Elana Mcdonough - Last Filed: 05/11/19 21:23> <Jackie Schilling - Last Filed: 05/11/19 21:36> - Past Medical History Allergies/Adverse Reactions: Allergies Allergy/AdvReac Type Severity Reaction Status Date / Time levofloxacin [From Levaquin] Allergy Severe Difficulty Verified 09/24/18 10:32 Breathing Sulfa (Sulfonamide Allergy Intermediate Rash Verified 05/11/19 18:28 Antibiotics) [Sulfa(Sulfonamide Antibiotics)] environmental Allergy Mild Cough Uncoded 05/11/19 18:28 Home Medications: Ambulatory Orders Rosuvastatin Calcium [Crestor] 10 mg PO DAILY 12/07/11 Levothyroxine [Synthroid -] 50 mcg PO DAILY 09/22/16 Fluticasone Propionate [Flovent Hfa] 1 spray IN HS 04/16/19 Escitalopram Oxalate [Lexapro -] 5 mg PO DAILY 05/11/19 *Physical Exam - Vital Signs Last Vital Signs Temp Pulse Resp BP Pulse Ox 97.9 F 65 17 153/79 99 05/11/19 16:47 05/11/19 16:47 05/11/19 16:47 05/11/19 16:47 05/11/19 16:47 <Elana Mcdonough - Last Filed: 05/11/19 21:23> - Vital Signs Last Vital Signs Temp Pulse Resp BP Pulse Ox 97.9 F 70 17 149/80 99 05/11/19 16:47 05/11/19 20:58 05/11/19 16:47 05/11/19 20:58 05/11/19 16:47 <Jackie Schilling - Last Filed: 05/11/19 21:36> ED Treatment Course - LABORATORY CBC & Chemistry Diagram: 05/11/19 18:20 05/11/19 18:20 <Elana Mcdonough - Last Filed: 05/11/19 21:23> - LABORATORY CBC & Chemistry Diagram: 05/11/19 18:20 05/11/19 18:20 - ADDITIONAL ORDERS Additional order review: Laboratory Results 05/11/19 05/11/19 05/11/19 20:40 18:20 18:20 Sodium 135 L Potassium 3.7 Chloride 100 Carbon Dioxide 29 Anion Gap 6 L BUN 27.9 H Creatinine 1.3 Est GFR (CKD-EPI)AfAm 43.63 Est GFR (CKD-EPI)NonAf 37.64 Random Glucose 82 Calcium 9.0 Total Bilirubin 0.3 AST 47 H ALT 55 Alkaline Phosphatase 45 Creatine Kinase Creatine Kinase Index CK-MB (CK-2) Troponin I < 0.02 Total Protein 7.2 Albumin 4.0 Urine Color Yellow Urine Appearance Clear Urine pH 7.0 Ur Specific [place] 1.004 L Urine Protein Negative Urine Glucose (UA) Negative Urine Ketones Negative Urine Blood Negative Urine Nitrite Negative Urine Bilirubin Negative Urine Urobilinogen 0.2 Ur Leukocyte Esterase Negative 05/11/19 18:20 Sodium Potassium Chloride Carbon Dioxide Anion Gap BUN Creatinine Est GFR (CKD-EPI)AfAm Est GFR (CKD-EPI)NonAf Random Glucose Calcium Total Bilirubin AST ALT Alkaline Phosphatase Creatine Kinase 472 H Creatine Kinase Index 2.4 CK-MB (CK-2) 11.5 H Troponin I < 0.02 Total Protein Albumin Urine Color Urine Appearance Urine pH Ur Specific [place] Urine Protein Urine Glucose (UA) Urine Ketones Urine Blood Urine Nitrite Urine Bilirubin Urine Urobilinogen Ur Leukocyte Esterase 05/11/19 18:20 RBC 4.41 MCV 88.2 MCHC 33.9 RDW 15.1 MPV 7.4 L Neutrophils % 61.2 Lymphocytes % 28.7 D Monocytes % 6.9 Eosinophils % 2.6 Basophils % 0.6 <Jackie Schilling - Last Filed: 05/11/19 21:36> Medical Decision Making - Medical Decision Making 05/11/19 17:44 Concern for ACS v PNA v UTI v medication reaction v orthostatic hypotension. - CBC, CMP - EKG, trop - CXR - UA/UC - orthostatics 05/11/19 19:56 EKG normal sinus at 63 bpm, no ischemic changes. AK 126, QRS 72, QTc 433. CXR without acute abnormality.Patient feeling improved, endorses having significant anxiety earlier which may have contributed. Will get second trop, f/u orthostatics, likely dc. 05/11/19 21:23 Labs unremarkable, second trop negative. Will dc. <Elana Mcdonough - Last Filed: 05/11/19 21:23> Discharge - Discharge Information Problems reviewed: Yes - Admission No <Elana Mcdonough - Last Filed: 05/11/19 21:23> - Discharge Information Problems reviewed: Yes - Admission No <Jackie Schilling - Last Filed: 05/11/19 21:36> - Discharge Information Clinical Impression/Diagnosis: Lightheaded, Hyperventilation Condition: Improved Disposition: HOME - Follow up/Referral Referrals: Sara Posey MD [Primary Care Provider] - - Patient Discharge Instructions Patient Printed Discharge Instructions: DI for Hyperventilation Additional Instructions: You were seen with lightheadedness. Your labs, EKG, and chest X ray did not show any issues. Please reach out to your primary care doctor for further management and potential adjustment of your anxiety medications. Return to the ED if you develop worsening symptoms.
[2019-05-11 18:50] LABS: BASO % 0.6 % (0-2.0); EOS % 2.6 % (0-4.5); HEMATOCRIT 38.9 % (32.4-45.2); HEMOGLOBIN 13.2 GM/dL (10.7-15.3); LYMPH % 28.7 % (8-40); MCH 29.9 pg (25.7-33.7); MCHC 33.9 g/dl (32.0-36.0); MEAN CELL VOLUME 88.2 fl (80-96); MEAN PLT VOLUME 7.4 fl (7.5-11.1); MONO % 6.9 % (3.8-10.2); NEUT % 61.2 % (42.8-82.8); PLATELET COUNT 229 K/MM3 (134-434); RBC 4.41 M/mm3 (3.60-5.2); RDW 15.1 % (11.6-15.6); URINE APPEARANCE CLEAR; URINE BILIRUBIN NEGATIVE (NEGATIVE); URINE COLOR YELLOW; URINE GLUCOSE (UA) NEGATIVE (NEGATIVE); URINE KETONE NEGATIVE (NEGATIVE); URINE LEUK ESTERASE NEGATIVE (NEGATIVE); URINE NITRITE NEGATIVE (NEGATIVE); URINE PROTEIN NEGATIVE (NEGATIVE); URINE UROBILINOGEN 0.2 mg/dL (0.2-1.0); WHITE BLOOD COUNT 6.4 K/mm3 (4.0-10.0)
[2019-05-11 19:20] LABS: BILIRUBIN,TOTAL 0.3 mg/dL (0.2-1); BLOOD UREA NITROGEN 27.9 mg/dL (7-18); CREATININE 1.3 mg/dL (0.55-1.3); POTASSIUM 3.7 mmol/L (3.5-5.1); TOT PROT 7.2 g/dl (6.4-8.2)
--- NOTE | 2019-05-11 19:57 | PDOC ---
Documentation entered by Hernesto Grissom SCRIBE, acting as scribe for Jackie Schilling MD. Jackie Schilling MD: This documentation has been prepared by the Praveena mayers Angel, SCRIBE, under my direction and personally reviewed by me in its entirety. I confirm that the documentation accurately reflects all work, treatment, procedures, and medical decision making performed by me. 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
[2019-05-11 23:13] VITALS: BP 139/78; PULSE 63
--- NOTE | 2019-05-12 10:33 | EKG ---
Test Reason : Blood Pressure : / mmHG Vent. Rate : 063 BPM Atrial Rate : 063 BPM P-R Int : 126 ms QRS Dur : 072 ms QT Int : 424 ms P-R-T Axes : 065 047 045 degrees QTc Int : 433 ms NORMAL SINUS RHYTHM NORMAL ECG WHEN COMPARED WITH ECG OF 16-APR-2019 12:58, NO SIGNIFICANT CHANGE WAS FOUND Confirmed by Vahe Lynch MD ([id number]) on 05/12/2019 10:33:35 AM Referred By: Confirmed By:Vahe Lynch MD
== END 2019-05-11 21:40 | disposition home or self-care (01) ==
LOC: JER 16:25
DX: R42 Dizziness and giddiness (principal); R06.4 Hyperventilation; E78.5 Hyperlipidemia, unspecified; E03.9 Hypothyroidism, unspecified; Z95.3 Presence of xenogenic heart valve; Z88.1 Allergy status to other antibiotic agents; Z88.2 Allergy status to sulfonamides; Z87.09 Personal history of other diseases of the respiratory system
CPT/HCPCS: 36415; 71045-TC-FY; 80053; 81003; 82550; 82553; 84484; 85025; 87086; 93005; 93010; 99284-25